=== PATIENT | male | born 1975 | race Caucasian/White ===

== ENCOUNTER 2018-02-25 21:35 | Inpatient (IN) | payer MEDICAID ==
[~2018-02-25] VITALS: Ht 165.1 cm; Wt 88.9 kg
[2018-02-25 21:38] VITALS: Ht 165.1 cm; Wt 88.9 kg
[2018-02-25 22:28] LABS: BASOPHIL % 0.8 % (0-2); PLATELET COUNT 192 x10^3mcL (130-400)
[2018-02-25 22:34] LABS: CALCIUM 8.1 mg/dL (8.5-10.1); CARBON DIOXIDE 27.3 mmol/L (21-32); CHLORIDE SERUM 98 mmol/L (98-107); CREATININE SERUM 0.8 mg/dL (0.7-1.3); GFR1 > 60 mL/min; GLUCOSE SERUM 244 mg/dL (74-106); POTASSIUM SERUM 3.6 mmol/L (3.5-5.1); SODIUM SERUM 138 mmol/L (136-145)
[2018-02-25 22:38] LABS: RED CELL DISTRIBUTION WIDTH 21.9 % (11.5-14.5)
[2018-02-25 22:39] LABS: ALKALINE PHOSPHATASE 109 U/L (46-116); ALT/SGPT 33 U/L (16-63); AST/SGOT 35 U/L (15-37); BILIRUBIN TOTAL 1.15 mg/dL (0.20-1.00); LIPASE 181 IU/L (73-393); TOTAL PROTEIN, SERUM 7.4 g/dL (6.4-8.2)
[2018-02-25 22:44] LABS: ALBUMIN 3.3 g/dL (3.4-5.0)
[2018-02-25 23:07] LABS: ovalocyte/elliptocyte 1+; rbc morphology (normal/abnorm) ABNORMAL (NORMAL); tear drop cell (dacryocyte) 1+
[2018-02-26 00:30] VITALS: BP 122/92
[2018-02-26 00:59] LABS: CHOLESTEROL/HDL RATIO 5.8
[2018-02-26 01:32] LABS: TOTAL IRON BINDING CAPACITY 394 ug/dL (250-450)
[2018-02-26 01:44] LABS: IRON 197 ug/dL (65-170)
[2018-02-26 01:47] LABS: RED BLOOD CELLS 4.78 M/mm3 (4.52-5.90)
[2018-02-26 04:05] LABS: microscopic required? NO
[2018-02-26 04:10] LABS: UA SPECIFIC GRAVITY 1.015 (1.005-1.035); urine erythrocyte NEGATIVE (NEGATIVE)
[2018-02-26 04:19] LABS: AMPHETAMINE QUAL UR NONE DETECTED (See below)
[2018-02-26 05:27] VITALS: BP 127/85
[2018-02-26 07:43] LABS: BASOPHIL % 0.4 % (0-2); PLATELET COUNT 167 x10^3mcL (130-400)
[2018-02-26 07:55] LABS: CALCIUM 8.2 mg/dL (8.5-10.1); CARBON DIOXIDE 28.9 mmol/L (21-32); CHLORIDE SERUM 101 mmol/L (98-107); CREATININE SERUM 0.7 mg/dL (0.7-1.3); GFR1 > 60 mL/min; GLUCOSE SERUM 130 mg/dL (74-106); MAGNESIUM 2.5 mg/dL (1.8-2.4); PHOSPHOROUS 4.4 mg/dL (2.5-4.9); POTASSIUM SERUM 3.9 mmol/L (3.5-5.1); SODIUM SERUM 137 mmol/L (136-145)
[2018-02-26 07:56] LABS: RED CELL DISTRIBUTION WIDTH 22.5 % (11.5-14.5)
[2018-02-26 09:19] VITALS: BP 123/79
[2018-02-26 11:10] LABS: rbc morphology (normal/abnorm) ABNORMAL (NORMAL)
[2018-02-26 13:53] VITALS: BP 136/75
[2018-02-26 17:28] VITALS: BP 133/77
[2018-02-26 20:57] VITALS: BP 133/79
[2018-02-27 05:21] VITALS: BP 125/65
[2018-02-27 07:21] LABS: CALCIUM 7.8 mg/dL (8.5-10.1); CARBON DIOXIDE 24.8 mmol/L (21-32); CHLORIDE SERUM 106 mmol/L (98-107); CREATININE SERUM 0.7 mg/dL (0.7-1.3); GFR1 > 60 mL/min; GLUCOSE SERUM 119 mg/dL (74-106); MAGNESIUM 2.1 mg/dL (1.8-2.4); PHOSPHOROUS 4.4 mg/dL (2.5-4.9); POTASSIUM SERUM 4.1 mmol/L (3.5-5.1); SODIUM SERUM 138 mmol/L (136-145)
[2018-02-27 07:36] LABS: BASOPHIL % 0.6 % (0-2); PLATELET COUNT 136 x10^3mcL (130-400)
[2018-02-27 07:46] LABS: RED CELL DISTRIBUTION WIDTH 22.3 % (11.5-14.5)
[2018-02-27 09:50] VITALS: BP 143/54
[2018-02-27 12:53] VITALS: BP 134/83
[2018-02-27 16:59] VITALS: BP 129/78
[2018-02-27 21:04] VITALS: BP 131/84
[2018-02-28 05:57] VITALS: BP 120/76
[2018-02-28 06:39] LABS: BASOPHIL % 0.4 % (0-2); PLATELET COUNT 138 x10^3mcL (130-400)
[2018-02-28 07:01] LABS: CARBON DIOXIDE 25.1 mmol/L (21-32); CHLORIDE SERUM 106 mmol/L (98-107); CREATININE SERUM 0.7 mg/dL (0.7-1.3); GFR1 > 60 mL/min; GLUCOSE SERUM 153 mg/dL (74-106); MAGNESIUM 2.1 mg/dL (1.8-2.4); PHOSPHOROUS 5.4 mg/dL (2.5-4.9); POTASSIUM SERUM 3.7 mmol/L (3.5-5.1); SODIUM SERUM 141 mmol/L (136-145)
[2018-02-28 07:19] LABS: RED CELL DISTRIBUTION WIDTH 22.5 % (11.5-14.5)
[2018-02-28 08:29] VITALS: BP 126/74
[2018-02-28 12:19] VITALS: BP 140/86
[2018-02-28 17:08] VITALS: BP 127/77
[2018-02-28 20:36] VITALS: BP 138/87
[2018-03-01 05:40] VITALS: BP 130/86
[2018-03-01 06:56] LABS: BASOPHIL % 0.5 % (0-2); PLATELET COUNT 142 x10^3mcL (130-400)
[2018-03-01 06:57] LABS: RED CELL DISTRIBUTION WIDTH 22.9 % (11.5-14.5)
[2018-03-01 07:28] LABS: ALKALINE PHOSPHATASE 87 U/L (46-116); ALT/SGPT 19 U/L (16-63); AST/SGOT 15 U/L (15-37); BILIRUBIN DIRECT 0.14 mg/dL (0.0-0.2); BILIRUBIN TOTAL 0.4 mg/dL (0.20-1.00); CARBON DIOXIDE 24.6 mmol/L (21-32); CHLORIDE SERUM 104 mmol/L (98-107); CREATININE SERUM 0.8 mg/dL (0.7-1.3); GFR1 > 60 mL/min; GLUCOSE SERUM 122 mg/dL (74-106); POTASSIUM SERUM 3.4 mmol/L (3.5-5.1); SODIUM SERUM 136 mmol/L (136-145); TOTAL PROTEIN, SERUM 6.5 g/dL (6.4-8.2)
[2018-03-01 07:30] LABS: ALBUMIN 2.8 g/dL (3.4-5.0)
[2018-03-01 09:00] VITALS: BP 107/70
[2018-03-01 12:45] VITALS: BP 113/69
[2018-03-01 15:35] VITALS: BP 113/69
== END 2018-03-01 17:22 | disposition home or self-care (01) | DRG 253 ==
LOC: ED 21:35 → DU 23:27
PROVIDERS: Emergency Medicine; Family Medicine; General Practice; Internal Medicine
DX: K92.2 Gastrointestinal hemorrhage, unspecified (principal); G92 Toxic encephalopathy; E11.65 Type 2 diabetes mellitus with hyperglycemia; E44.1 Mild protein-calorie malnutrition; F10.120 Alcohol abuse with intoxication, uncomplicated; E83.51 Hypocalcemia; D62 Acute posthemorrhagic anemia; E78.1 Pure hyperglyceridemia; E80.6 Other disorders of bilirubin metabolism; K76.0 Fatty (change of) liver, not elsewhere classified; Y90.9 Presence of alcohol in blood, level not specified; Z68.33 Body mass index [BMI] 33.0-33.9, adult
CPT/HCPCS: 82962; 90658; C9113; G0480; J1885; J2060; J2405; J3411; J3475; J3490; J7030; Q0092

== ENCOUNTER 2019-10-10 12:02 | Emergency (ER) | payer MEDICAID ==
[~2019-10-10] VITALS: Ht 165.1 cm; Wt 91.6 kg
[2019-10-10 12:07] VITALS: Ht 165.1 cm; Wt 91.6 kg
[2019-10-10 13:03] LABS: BASOPHIL % 0.5 % (0-2); PLATELET COUNT 156 x10^3mcL (130-400)
[2019-10-10 13:04] LABS: RED CELL DISTRIBUTION WIDTH 20.4 % (11.5-14.5)
[2019-10-10 13:06] LABS: rbc morphology (normal/abnorm) ABNORMAL (NORMAL)
[2019-10-10 13:13] LABS: CALCIUM 8.1 mg/dL (8.5-10.1); CARBON DIOXIDE 23.1 mmol/L (21-32); CHLORIDE SERUM 106 mmol/L (98-107); CREATININE SERUM 0.6 mg/dL (0.7-1.3); GFR1 > 60 mL/min; GLUCOSE SERUM 208 mg/dL (74-106); POTASSIUM SERUM 3.6 mmol/L (3.5-5.1); SODIUM SERUM 145 mmol/L (136-145)
[2019-10-10 13:17] LABS: ALBUMIN 3.5 g/dL (3.4-5.0); ALKALINE PHOSPHATASE 104 U/L (46-116); ALT/SGPT 64 U/L (16-63); AST/SGOT 32 U/L (15-37); BILIRUBIN TOTAL 0.6 mg/dL (0.20-1.00); LIPASE 139 IU/L (73-393); TOTAL PROTEIN, SERUM 7.2 g/dL (6.4-8.2)
[2019-10-10 14:38] VITALS: BP 165/94
== END 2019-10-10 14:38 | disposition home or self-care (01) ==
LOC: ED 12:02
PROVIDERS: Emergency Medicine
DX: K20.9 Esophagitis, unspecified (principal); F10.10 Alcohol abuse, uncomplicated; E11.9 Type 2 diabetes mellitus without complications; Z98.890 Other specified postprocedural states
CPT/HCPCS: J7030; Q0092